=== PATIENT | male | born 1970 | race Two or more races ===

== ENCOUNTER 2019-01-03 19:34 | Inpatient (IN) | payer OTHER ==
[~2019-01-03] VITALS: Ht 165.1 cm; Wt 76.2 kg
[2019-01-03 19:56] VITALS: BP 151/83
--- NOTE | 2019-01-03 20:44 | NUR ---
PERSONAL SHOPPER NOTES RECEIVED PT FROM EMT. PT AMBULATORY. ON ROOM AIR NO RESPIRATORY DISTRESS NOTED. IV ACCESS ON LFA G20 PATENT AND INTACT. HEAD OF BED ELEVATED. SIDE RAILS UP. CALL LIGHT WITHIN REACH. BED ALARM ON. WILL CONTINUE TO MONITOR PT CLOSELY.
--- NOTE | 2019-01-03 21:48 | NUR ---
WAGON DRILL OPERATOR NOTES PT REFUSED BELONGING CHECK. CHARGE NURSE INFORMED.
--- NOTE | 2019-01-03 21:51 | NUR ---
OIL BAY TECHNICIAN NOTES PAGED BRANDING MACHINE TENDER FOR ORDERS. AWAITING ORDERS. WILL MONITOR PT CLOSELY.
[2019-01-03] MEDS ORDERED: DEXTROSE 50%-WATER 50 ML DISP.SYRIN IV PRN (23:30)
[2019-01-03] MEDS ORDERED: MAGNESIUM HYDROXIDE 30 ML UDC PO PRN (23:30)
[2019-01-03] MEDS ORDERED: ONDANSETRON HCL/PF 4 MG/2 ML VIAL IVP PRN (23:30)
[2019-01-03] MEDS ORDERED: Z GUARD REMEDY 2 OZ OINT TP PRN (23:30)
[2019-01-03] MEDS ORDERED: MAG HYDROX/AL HYDROX/SIMETH 30 ML UDC PO PRN (23:30)
[2019-01-03] MEDS ORDERED: ZOLPIDEM TARTRATE 5 MG TABLET PO PRN (23:30)
[2019-01-03] MEDS ORDERED: LORAZEPAM 1 MG TABLET PO PRN (23:30)
[2019-01-03] MEDS ORDERED: HYDROCODONE/APAP 5/325MG 1 EACH TABLET PO PRN (23:30)
[2019-01-03] MEDS ORDERED: ACETAMINOPHEN 325 MG TABLET PO PRN (23:30)
[2019-01-04] VITALS (10 sets, daily range): BP systolic 95–134; BP diastolic 45–84
[2019-01-04] MEDS: IV NS 0.9% 1,000 ML IV PRN (00:15)
[2019-01-04] MEDS ORDERED: PENICILLIN ONE (00:15)
[2019-01-04] MEDS ORDERED: NS IV ONE (00:30)
[2019-01-04] MEDS ORDERED: PENICILLIN IV ONE (00:30)
[2019-01-04] MEDS: NS IV SCH ×5 (01:00→09:48)
[2019-01-04] MEDS: PENICILLIN IV SCH ×5 (01:00→09:48)
[2019-01-04] MEDS ORDERED: VANCOMYCIN 1 GM VIAL ONE (03:29)
[2019-01-04] MEDS ORDERED: VANCOMYCIN 1.25 GM in IV D5W 250 ML IV ONE (03:30)
[2019-01-04] MEDS ORDERED: VANCOMYCIN 1 GM in IV D5W 250 ML IV ONE (04:00)
--- NOTE | 2019-01-04 04:41 | NUR ---
LABELLING MACHINE OPERATOR NOTES PT REFUSED BED BATH NAD LINEN CHANGE
[2019-01-04] MEDS ORDERED: CLINDAMYCIN 900 MG in IV NS 0.9% 50 ML IV SCH (05:00)
[2019-01-04] MEDS ORDERED: CLINDAMYCIN 900 MG/6 ML VIAL ONE (05:13)
[2019-01-04 06:26] LABS: BASOPHILS % (AUTO) 0.5 % (0.0-2.0); EOSINOPHILS % (AUTO) 6.3 % (0.0-6.0); HEMATOCRIT 22 % (39-51); LYMPHOCYTES % (AUTO) 11.6 % (20.0-44.0); MEAN CORPUSCULAR HGB CONC 32 g/dl (31.0-36.0); MEAN CORPUSCULAR VOLUME 69 fL (80-96); MONOCYTES # (AUTO) 0.6 /CMM (0.1-1.30); MONOCYTES % (AUTO) 6.2 % (2.0-12.0); NEUTROPHILS # (AUTO) 6.7 /CMM (1.8-8.9); NEUTROPHILS % (AUTO) 75.4 % (43.0-81.0); PLATELET COUNT (AUTO) 293 /CMM (150-450); RED BLOOD CELL COUNT(AUTO) 3.15 MIL/uL (4.5-6.0); WHITE BLOOD COUNT (AUTO) 8.9 K/uL (4.3-11.0)
[2019-01-04 06:40] LABS: HEMOGLOBIN 6.9 g/dL (13.5-17.5)
--- NOTE | 2019-01-04 06:46 | NUR ---
METAL WELDER NOTES PAGED IMPLEMENTATION PROJECT MANAGER REGARDING H/H OF 6.08/11. AWAITING ORDERS.
[2019-01-04 06:52] LABS: EOSINOPHILS % (MANUAL) 8 % (0-4); LYMPHOCYTES % (MANUAL) 11 % (16-48); MONOCYTES % (MANUAL) 6 % (0-11.0); NEUTROPHILS % (MANUAL) 75 (42-76)
[2019-01-04 06:56] LABS: ALBUMIN 1.5 g/dL (3.4-5.0); CALCIUM, SERUM 7.5 mg/dL (8.5-10.1); MAGNESIUM 1.6 mg/dL (1.8-2.4); PHOSPHORUS 3.4 mg/dL (2.5-4.9); POTASSIUM 3.6 mmol/L (3.5-5.1)
--- NOTE | 2019-01-04 06:59 | NUR ---
ADVERTISER NOTES NO ACUTE CHANGES NOTED DURING THE SHIFT, PROVIDED COMFORT AND SAFETY. PROVIDED FREQUENT SUCTIONING. WILL ENDORSE TO THE AM NURSE FOR CONTINUITY OF CARE. Addendum: 01/04/19 at 0700 by ISAAC WILD RN WRONG PATIENT
--- NOTE | 2019-01-04 07:00 | NUR ---
STENOCAPTIONER NOTES NO ACUTE CHANGES NOTED DURING THE SHIFT, PROVIDED COMFORT AND SAFETY. WILL ENDORSE TO THE AM NURSE FOR CONTINUITY OF CARE.
[2019-01-04 07:07] LABS: THYROID STIMULATING HORMONE 4.781 uIU/mL (0.358-3.74)
--- NOTE | 2019-01-04 07:20 | NUR ---
Nurse Notes: received report from Rich Goodwin RN, patient is resting in bed. Remains NPO, waiting for doctors to decise if patient will have surgery.
--- NOTE | 2019-01-04 07:56 | NUR ---
Nurse Notes: per pharmacy PCN antibiotics to be started at 0900, dose not charted on shift mgr.
[2019-01-04] MEDS: BLOOD SUGAR DIAGNOSTIC 1 EACH STRIP IN SCH ×4 (08:20→21:40)
[2019-01-04] MEDS ORDERED: AMLO5TAB9 PO (08:35)
[2019-01-04] MEDS ORDERED: METF500T7 PO (08:35)
[2019-01-04] MEDS: LEVETIRACETAM (250 MG) 250 MG TABLET PO SCH ×2 (09:00→21:33)
[2019-01-04] MEDS: THIAMINE HCL 100 MG TABLET PO SCH (09:46)
[2019-01-04] MEDS: FOLIC ACID 1 MG TABLET PO SCH (09:46)
[2019-01-04] MEDS: AMLODIPINE BESYLATE 10 MG TABLET PO SCH (09:46)
[2019-01-04] MEDS: Magnesium 1GM/D5W 100ML PREMIX 100 ML IV SCH ×4 (10:56→19:55)
--- NOTE | 2019-01-04 11:47 | NUR ---
Nurse Notes: Patient to surgery via bed, packed cells started 20 minutes ago, Patient was observed for blood transfusion reaction, No reaction, Remain afebrile, no symptoms of any transfusion reaction. Received dose PCN units IVPB.
--- NOTE | 2019-01-04 11:50 | NUR ---
Nurse Notes: patient went to surgery with unit of packed cells infusing at 120 cc per hour, pre-op will complete the blood transfusion. vital signs taken 15 minutes after start of blood.
--- NOTE | 2019-01-04 11:52 | NUR ---
Nurse Notes: Vancomycin IVPB was given at 0400, not charted on JAN. received PCN earlier at 0900.
[2019-01-04] MEDS ORDERED: BUPIVACAINE 0.5 % PF 150 MG/30 ML VIAL ONE (12:07)
[2019-01-04] MEDS ORDERED: CELLULOSE,OXIDIZED 1 EA PACK MC ONE (12:46)
[2019-01-04] MEDS ORDERED: CLINDAMYCIN 900 MG in IV D5W 50 ML IV SCH (13:00)
--- NOTE | 2019-01-04 13:45 | NUR ---
Nurse Notes: Received patient from recovery room, alert and oriented, and asking for food. Vital signs stable. No complaints of pain, dressing intact left foot. patient is able to move foot. No complaints of any numbness.
[2019-01-04] MEDS: VANCOMYCIN 1 GM in IV D5W 250 ML IV SCH ×2 (14:21→21:33)
[2019-01-04 14:53] LABS: BASOPHILS % (AUTO) 0.4 % (0.0-2.0); EOSINOPHILS % (AUTO) 4.4 % (0.0-6.0); HEMATOCRIT 26 % (39-51); HEMOGLOBIN 8.3 g/dL (13.5-17.5); LYMPHOCYTES # (AUTO) 0.9 /CMM (0.8-4.8); LYMPHOCYTES % (AUTO) 9.8 % (20.0-44.0); MEAN CORPUSCULAR HGB CONC 32 g/dl (31.0-36.0); MEAN CORPUSCULAR VOLUME 71 fL (80-96); MONOCYTES # (AUTO) 0.5 /CMM (0.1-1.30); MONOCYTES % (AUTO) 5.4 % (2.0-12.0); NEUTROPHILS # (AUTO) 7.7 /CMM (1.8-8.9); PLATELET COUNT (AUTO) 273 /CMM (150-450); RED BLOOD CELL COUNT(AUTO) 3.64 MIL/uL (4.5-6.0); WHITE BLOOD COUNT (AUTO) 9.6 K/uL (4.3-11.0)
--- NOTE | 2019-01-04 15:18 | NUR ---
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 A consult was requested per Dr. Breaux for homelessness. SW met with the pt in his Rm 109T-1. Pt is alert and oriented x4 (time, place, self and situation). Pt appeared to be disheveled and ungroomed. Pt states that he was renting out a room located at [address] [place] [address] but he no longer does. He stated that he is now currently living with different friends at a time. Pt stated that he is currently living with his friend, Lakhwinder, who lives in [place]. SW was unable to get a phone number for Lakhwinder because the pt's phone is currently out of charge. 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 Pt stated that he he has family nearby such as his mother (Isidra) who lives in [place], his sister who lives in [place], and his brother (Reed: [phone]) who lives in [place]. Pt does not have a history of drug abuse or alcohol abuse but he did state that he smokes tobacco. HOLLIE provided the pt with a few homeless resources including shelters and food [place] as well as substance abuse referrals. Pt also signed the homeless waiver. Addendum: 01/04/19 at 1544 by TESSIE BROWNE HOLLIE included substance abuse referrals for the pt due to the pt stating that he quit drinking/abusing alcohol one year ago when he discovered his Diabetes diagnosis.
[2019-01-04 15:22] LABS: EOSINOPHILS % (MANUAL) 4 % (0-4); LYMPHOCYTES % (MANUAL) 11 % (16-48); MONOCYTES % (MANUAL) 4 % (0-11.0); NEUTROPHILS % (MANUAL) 81 (42-76)
[2019-01-04] MEDS ORDERED: PERMETHRIN 5% CRM 60 GM TUBE TP ONE (18:00)
--- NOTE | 2019-01-04 18:10 | NUR ---
Nurse Notes: patient was not able to get magnesium 2 gm was ordered, this morning, patient want to surgery, and blood was transfusing this morning. all antibiotics IVPB started as soon, patient return to room
[2019-01-04] MEDS: LORATADINE 10 MG TABLET PO SCH (18:13)
[2019-01-04] MEDS: PIPERACILLIN /TAZOBACTAM 3.375 G in IV D5W 50 ML IV SCH (19:20)
--- NOTE | 2019-01-04 19:20 | NUR ---
Nurse Notes: patient will receive IV antibiotics now between magnesium bolus. medication was not on floor. all other abntibiotics started once patient return from surgery.
--- NOTE | 2019-01-04 20:30 | NUR ---
PRODUCTION ADMINISTRATOR NOTES PER MORNING NURSE NON ADMIN ONE BAG OF MAGNESIUM PER PHARMACY ORDERS.
--- NOTE | 2019-01-04 22:24 | NUR ---
LAP GRINDER NOTES RECEIVED PT ON BED. A/OX4. ON TELE MONITOR SR. ON RA SATURATING WELL NO RESPIRATORY DISTRESS NOTED. IV ACCESS LFA G20 NS @ 75CC/HR PATENT AND INTACT. LEFT FOOT WOUND DRESSING CLEAN. HEAD OF BED ELEVATED. SIDE RAILS UP. CALL LIGHT WITHIN REACH. BED ALARM ON. WILL CONTINUE TO MONITOR PT CLOSELY.
[2019-01-05] VITALS: BP 124/75
[2019-01-05] MEDS: PIPERACILLIN /TAZOBACTAM 3.375 G in IV D5W 50 ML IV SCH ×5 (00:20→23:47)
[2019-01-05] MEDS: IV NS 0.9% 1,000 ML IV PRN ×2 (01:00→20:56)
[2019-01-05 04:00] VITALS: BP 131/80
[2019-01-05] MEDS: VANCOMYCIN 1 GM in IV D5W 250 ML IV SCH ×3 (04:24→20:18)
--- NOTE | 2019-01-05 04:25 | NUR ---
RN NOTE: REQUESTED FOR THE ACCESS CLINICIAN TO COME AND DRAW THE VANCO TROUGH AND AWAITING FOR THE RN RADIATION TO DRAW BLOOD. Addendum: 01/06/19 at 0813 by BATOOL RETANA RN ERROR: ENTRY FOR 01/06/19
[2019-01-05 07:12] LABS: BASOPHILS # (AUTO) 0.1 /CMM (0.0-0.2); BASOPHILS % (AUTO) 0.7 % (0.0-2.0); EOSINOPHILS % (AUTO) 5.5 % (0.0-6.0); HEMATOCRIT 22 % (39-51); HEMOGLOBIN 7.3 g/dL (13.5-17.5); LYMPHOCYTES # (AUTO) 1.1 /CMM (0.8-4.8); LYMPHOCYTES % (AUTO) 11.8 % (20.0-44.0); MEAN CORPUSCULAR HGB CONC 33 g/dl (31.0-36.0); MEAN CORPUSCULAR VOLUME 70 fL (80-96); MONOCYTES # (AUTO) 0.6 /CMM (0.1-1.30); MONOCYTES % (AUTO) 6.4 % (2.0-12.0); NEUTROPHILS # (AUTO) 7.3 /CMM (1.8-8.9); NEUTROPHILS % (AUTO) 75.6 % (43.0-81.0); PLATELET COUNT (AUTO) 269 /CMM (150-450); RED BLOOD CELL COUNT(AUTO) 3.17 MIL/uL (4.5-6.0); WHITE BLOOD COUNT (AUTO) 9.7 K/uL (4.3-11.0)
--- NOTE | 2019-01-05 07:15 | NUR ---
SUPERVISOR/PORT DIRECTOR OPENING NOTES RECEIVED PT ON BED. A/OX4. ON TELE MONITOR SR HR 68. ON RA SATURATING WELL NO RESPIRATORY DISTRESS NOTED. IV ACCESS LFA G20 NS @ 75CC/HR PATENT AND INTACT. LEFT FOOT WOUND DRESSING INTACT. HEAD OF BED ELEVATED. SIDE RAILS UP. CALL LIGHT WITHIN REACH. BED ALARM ON. WILL CONTINUE TO MONITOR .
--- NOTE | 2019-01-05 07:26 | NUR ---
FINISHED CLOTH CHECKER NOTES NO ACUTE CHANGES NOTED DURING THE SHIFT. PROVIDED COMFORT AND SAFETY. WILL ENDORSE TO THE AM NURSE FOR CONTINUITY OF CARE.
[2019-01-05] MEDS: BLOOD SUGAR DIAGNOSTIC 1 EACH STRIP IN SCH ×4 (07:56→21:50)
[2019-01-05 08:00] VITALS: BP 110/67
--- NOTE | 2019-01-05 08:00 | NUR ---
CONCRETE PAVEMENT INSTALLER NOTE SEEN BY DR PUTNAM,WOUND DRESSING DONE.GOT NEW ORDERS.WILL CONTINUE TO MONITOR.
[2019-01-05 08:06] LABS: CALCIUM, SERUM 7.2 mg/dL (8.5-10.1); CREATININE 1.1 mg/dL (0.6-1.3); MAGNESIUM 1.9 mg/dL (1.8-2.4); PHOSPHORUS 3.7 mg/dL (2.5-4.9); POTASSIUM 3.8 mmol/L (3.5-5.1)
[2019-01-05] MEDS: THIAMINE HCL 100 MG TABLET PO SCH (09:31)
[2019-01-05] MEDS: LEVETIRACETAM (250 MG) 250 MG TABLET PO SCH ×2 (09:31→20:20)
[2019-01-05] MEDS: LORATADINE 10 MG TABLET PO SCH (09:32)
[2019-01-05] MEDS: AMLODIPINE BESYLATE 10 MG TABLET PO SCH (09:32)
[2019-01-05] MEDS: FOLIC ACID 1 MG TABLET PO SCH (09:36)
[2019-01-05 10:14] LABS: BAND % (MANUAL) 2 % (0.0-5.0); EOSINOPHILS % (MANUAL) 6 % (0-4); LYMPHOCYTES % (MANUAL) 10 % (16-48); MONOCYTES % (MANUAL) 7 % (0-11.0); NEUTROPHILS % (MANUAL) 75 (42-76)
[2019-01-05 12:00] VITALS: BP 102/56
[2019-01-05] MEDS ORDERED: FEE PK DOSING 1 MIN EA MC ONE (12:38)
--- NOTE | 2019-01-05 13:00 | NUR ---
BAKERY AND DELI SALES MANAGER NOTE PATIENT REFUSED INSULIN.OFFERED X3 AND EDUCATED PATIENT STILL REFUSING.WILL CONTINUE TO MONITOR.
--- NOTE | 2019-01-05 15:00 | NUR ---
ZIPPER CUTTER NOTE PATIENT REFUSED TO TAKE SHOWER AFTER THE ELIMITE APPLICATION LAST NIGHT.PATIENT STATED THAT HE IS COLD AND TIRED .DONT WANT TO TAKE SHOWER.OFFERED BED BATH STILL REFUSING.EDUCATED ABOUT THE IMPORTANCE FOR THE BED BATH.PATIENT AGREED TO DO BED BATH AFTER DINNER WITH PM SHIFT.CHARGE NURSE AWARE.WILL ENDORSE TO PM NURSE.
[2019-01-05 16:00] VITALS: BP 112/46
--- NOTE | 2019-01-05 16:00 | NUR ---
SENIOR ENERGY CONSULTANT NOTE SEEN BY DEVICE REPAIR TECHNICIAN RIGOBERTO UPDATED PATIENT CONDITION WITH LABS,NOTIFIED H/H TRENDING DOWN.GOT NEW ORDER.
[2019-01-05] MEDS: INSULIN REGULAR, HUMAN 100 UNIT/ML 3 ML VIAL SQ PRN (17:45)
--- NOTE | 2019-01-05 18:53 | NUR ---
BIOMETRICS ANALYST CLOSING NOTES PT ON BED. A/OX4. ON TELE MONITOR SR HR 64. ON RA SATURATING WELL NO RESPIRATORY DISTRESS NOTED. IV ACCESS LW G20 NS @ 75CC/HR PATENT AND INTACT. LEFT FOOT WOUND DRESSING INTACT. HEAD OF BED ELEVATED. SIDE RAILS UP. CALL LIGHT WITHIN REACH. BED ALARM ON. WILL ENDORSE TO PM NURSE FOR BASIL.
--- NOTE | 2019-01-05 19:45 | NUR ---
RN OPENING NOTE: RECEIVED PATIENT IN BED, AWAKE, ALERT AND VERBALLY RESPONSIVE. BREATHING EVEN AND UNLABORED. DENIED ANY PAIN. ON CONTACT ISOLATION DUE TO R/O POSSIBLE SCABIES. PATIENT RECEIVED ELIMITE YESTERDAY AND DUE FOR A SHOWER TONIGHT. BED ALARMED AND LOCKED AT ALL TIMES. (L) WRIST IV LINE NOTED PATENT AND INTACT INFUSING NS @75ML/HR. HOB ELEVATED. CALL LIGHT WITHIN REACH. NEEDS ANTICIPATED. DISCUSSED WITH THE PATIENT REGARDING THE PLAN OF GIVING HIM A SHOWER TO RINSE THE ELIMITE CREAM THAT WAS GIVEN TO THE PATIENT. PER PATIENT " I DON'T THINK I WILL SHOWER TONIGHT. I'M AFRAID TO GET SICK." EXPLAINED TO THE PATIENT THE IMPORTANCE OF GETTING RINSE ON THE ELIMITE CREAM, BUT HE STRONGLY REFUSED TO TAKE SHOWER.
[2019-01-05 20:00] VITALS: BP 116/68
[2019-01-06] VITALS: BP 112/61
--- NOTE | 2019-01-06 00:16 | NUR ---
RN NOTE: CALLED AFTER HOUR PHARMACIST OG COON AND MADE HIM AWARE ABOUT THE CRITICAL LAB RESULT FOR VANCOMYCIN TROUGH DRAWN AT 2300 AND THE LEVEL WAS 54. HE WAS INFORMED ABOUT THE NOTES OF ROSALIND AYALA. PER OG HE WILL TAKE A LOOK ON THE PATIENT'S CHART AND WILL CALL BACK.
--- NOTE | 2019-01-06 00:22 | NUR ---
RN NOTE: RECEIVED A CALL BACK FROM ROSALIND FOLEY AND ACCORDING TO HIM HE WILL SCHEDULE ANOTHER VANCOMYCIN TROUGH AT 0300 PRIOR TO THE VANCOMYCIN DOSE AT 0400. IVAN YAN WAS MADE AWARE. PATIENT WAS INFORMED.
[2019-01-06 04:00] VITALS: BP 116/59
--- NOTE | 2019-01-06 04:15 | NUR ---
RN NOTE: CALLED AND SPOKE WITH DIGITAL CONTENT MANAGER KAREN AND ASKED HER ABOUT THE VANCOMYCIN TROUGH AT 0300. ACCORDING TO KAREN, THE 2 PHLEBOTOMISTS WERE STILL IN ICU. AND PER KAREN, THE VANCOMYCIN TROUGH WILL BE DRAWN TOGETHER WITH THE AM LABS. CALLED AND INFORMED OG THE AFTER HOUR PHARMACIST ABOUT THE DELAY ON THE VANCO TROUGH AND HE SAID TO HOLD THE DOSE OF THE VANCOMYCIN AT 0400 UNTIL THE RESULT FOR THE VANCO TROUGH. YURIY VICK NP MADE AWARE.
--- NOTE | 2019-01-06 04:25 | NUR ---
RN NOTE: REQUESTED FOR THE LINEN CONTROLLER TO COME AND DRAW THE VANCO TROUGH AND AWAITING FOR THE BLOCKMASON TO DRAW BLOOD.
[2019-01-06 04:52] LABS: BASOPHILS # (AUTO) 0.1 /CMM (0.0-0.2); BASOPHILS % (AUTO) 0.6 % (0.0-2.0); HEMATOCRIT 22 % (39-51); HEMOGLOBIN 7.1 g/dL (13.5-17.5); LYMPHOCYTES % (AUTO) 11.1 % (20.0-44.0); MEAN CORPUSCULAR HGB CONC 33 g/dl (31.0-36.0); MEAN CORPUSCULAR VOLUME 71 fL (80-96); MONOCYTES # (AUTO) 0.5 /CMM (0.1-1.30); MONOCYTES % (AUTO) 5.3 % (2.0-12.0); NEUTROPHILS # (AUTO) 7.3 /CMM (1.8-8.9); PLATELET COUNT (AUTO) 274 /CMM (150-450); RED BLOOD CELL COUNT(AUTO) 3.07 MIL/uL (4.5-6.0); WHITE BLOOD COUNT (AUTO) 9.3 K/uL (4.3-11.0)
[2019-01-06 05:16] LABS: CALCIUM, SERUM 7.3 mg/dL (8.5-10.1); CREATININE 1.2 mg/dL (0.6-1.3); POTASSIUM 3.6 mmol/L (3.5-5.1)
[2019-01-06 05:23] LABS: LYMPHOCYTES % (MANUAL) 11 % (16-48); NEUTROPHILS % (MANUAL) 80 (42-76)
[2019-01-06 05:24] LABS: EOSINOPHILS % (MANUAL) 4 % (0-4); MONOCYTES % (MANUAL) 5 % (0-11.0)
[2019-01-06] MEDS: VANCOMYCIN 1 GM in IV D5W 250 ML IV SCH (05:29)
--- NOTE | 2019-01-06 05:29 | NUR ---
RN NOTE: CALLED AND SPOKE WITH OG FROM THE AFTER HOUR PHARMACY AND HE WAS INFORMED OF THE VANCOMYCIN TROUGH OF 37. PER OG, HOLD THE DOSE OF VANCOMYCIN FOR 0400 AND WILL HAVE THE PHARMACIST IN THE MORNING DECIDE ABOUT THE NEXT DOSE. YURIY VICK NP MADE AWARE.
[2019-01-06] MEDS: PIPERACILLIN /TAZOBACTAM 3.375 G in IV D5W 50 ML IV SCH ×4 (05:43→23:40)
--- NOTE | 2019-01-06 07:30 | NUR ---
RN CLOSING NOTE: PATIENT REMAINED ASLEEP AT THIS TIME. NO CHANGE OF CONDITION NOTED. REPORT GIVEN TO AM SHIFT NURSE FOR CONTINUITY OF CARE.
[2019-01-06 08:00] VITALS: BP 115/67
--- NOTE | 2019-01-06 08:00 | NUR ---
CLAIM EXAMINER NOTE RECEIVED PATIENT IN BED ALERT, ORIENTED, ALL NEEDS ATTENDED ON IVF ORDERED. LT HAND HL INTACT ON TELE MONITOR SR , ON RA NO SOB NOTED AT THIS TIME, BED IN LOWEST AND LOCKED POSITION , PLAN OF CAR DISCUSSED WITH PATIENT , WILL CONT TO MONITOR CLOSELY
[2019-01-06] MEDS: THIAMINE HCL 100 MG TABLET PO SCH (09:23)
[2019-01-06] MEDS: LORATADINE 10 MG TABLET PO SCH (09:23)
[2019-01-06] MEDS: LEVETIRACETAM (250 MG) 250 MG TABLET PO SCH ×2 (09:23→21:43)
[2019-01-06] MEDS: AMLODIPINE BESYLATE 10 MG TABLET PO SCH (09:24)
[2019-01-06] MEDS: BLOOD SUGAR DIAGNOSTIC 1 EACH STRIP IN SCH ×4 (09:24→21:46)
[2019-01-06] MEDS: FOLIC ACID 1 MG TABLET PO SCH (09:24)
--- NOTE | 2019-01-06 09:36 | NUR ---
INVOICE CODER NOTE SPOKE WITH PHARMACIST LCUY ABOUT VANCO LEVEL IS HIGH ,STATED THAT WILL CHECK IT SOON WILL F\U
[2019-01-06] MEDS: INSULIN REGULAR, HUMAN 100 UNIT/ML 3 ML VIAL SQ PRN (11:58)
[2019-01-06 12:00] VITALS: BP 132/88
--- NOTE | 2019-01-06 12:30 | NUR ---
LIFE SKILLS EDUCATOR NOTE SPOKE WITH DR NOBLES NOTIFIED THAT HG 7.1 ALSO PATIENT WANTS TO EAT BIGGER PORTION OF FOOD , WANTS TO HAV REGULAR DIET , DR NOBLES STATED OK TO ORDER REGULAR DIET , DIETITIAN AT BEDSIDE ,DISCUSSED WITH PATIENT ABOUT DIET
[2019-01-06] MEDS: IV NS 0.9% 1,000 ML IV PRN ×2 (14:17→21:42)
--- NOTE | 2019-01-06 15:00 | NUR ---
FILLING MACHINE OPERATOR NOTE ABLE TO GO BR SELF, NOT IN ACUTE DISTRESS ,ALL NEEDS ATTENDED, WILL CONT TO MONITOR CLOSELY
[2019-01-06 16:00] VITALS: BP 125/72
--- NOTE | 2019-01-06 16:14 | NUR ---
TELERN NOTE REFUSED TO DO SHOWER AND LUCÍA FAIRCHILD, OFFERED X3 ,STILL REFUSING. WILL F\U
[2019-01-06] MEDS: LACTOBACILLUS RHAMNOSUS GG 1 EACH CAP.SPRINK PO SCH (16:18)
--- NOTE | 2019-01-06 19:11 | NUR ---
EPIC KALEIDOSCOPE ANALYST NOTE STOOL MISBAH OB COLLECTED ORDERED, ALL NEEDS ATTENDED. NOT IN ACUTE DISTRESS
[2019-01-06 20:00] VITALS: BP 120/69
--- NOTE | 2019-01-06 20:00 | NUR ---
RN INITIAL NOTE RECEIVED PATIENT IN BED ALERT, ORIENTED, ALL NEEDS ATTENDED ON IVF ORDERED. LT HAND HL INTACT ON TELE MONITOR SR , ON RA NO SOB NOTED AT THIS TIME, BED IN LOWEST AND LOCKED POSITION , PLAN OF CARE DISCUSSED WITH PATIENT , WILL CONT TO MONITOR CLOSELY
--- NOTE | 2019-01-06 22:04 | NUR ---
RN NOTES PT REFUSED TO HAVE PICS TAKEN OF HIS WOUNDS. PT STATED PIC BEFORE, AND HIS DRESSING WAS DONE TODAY BY MD AND DID NOT WANT IT TO BE REDONE. CHARGE NURSE NOTIFIED.
[2019-01-06 22:35] LABS: OCCULT BLOOD STOOL POSITIVE (NEGATIVE)
[2019-01-07] VITALS: BP 131/62
[2019-01-07 04:00] VITALS: BP_SYST 109; BP_SYST 136; BP_DIAS 54; BP_DIAS 79
[2019-01-07] MEDS: PIPERACILLIN /TAZOBACTAM 3.375 G in IV D5W 50 ML IV SCH ×4 (05:13→23:55)
--- NOTE | 2019-01-07 06:13 | NUR ---
RN CLOSING NOTE: PATIENT REMAINED AWAKE IN BED AT THIS TIME. NO CHANGE OF CONDITION NOTED. PT REFUSED BATH, BED LINEN CHANGE, PICS AND DRESSING CHANGE. WILL ENDORSE TO AM SHIFT NURSE FOR CONTINUITY OF CARE.
[2019-01-07 07:05] LABS: CALCIUM, SERUM 7.7 mg/dL (8.5-10.1); CREATININE 1.2 mg/dL (0.6-1.3); POTASSIUM 3.6 mmol/L (3.5-5.1)
[2019-01-07 07:10] LABS: BASOPHILS % (AUTO) 0.6 % (0.0-2.0); EOSINOPHILS % (AUTO) 6.9 % (0.0-6.0); HEMATOCRIT 23 % (39-51); HEMOGLOBIN 7.5 g/dL (13.5-17.5); LYMPHOCYTES # (AUTO) 1.2 /CMM (0.8-4.8); LYMPHOCYTES % (AUTO) 14.9 % (20.0-44.0); MEAN CORPUSCULAR HGB CONC 32 g/dl (31.0-36.0); MEAN CORPUSCULAR VOLUME 71 fL (80-96); MONOCYTES # (AUTO) 0.6 /CMM (0.1-1.30); MONOCYTES % (AUTO) 7.8 % (2.0-12.0); NEUTROPHILS # (AUTO) 5.4 /CMM (1.8-8.9); NEUTROPHILS % (AUTO) 69.8 % (43.0-81.0); PLATELET COUNT (AUTO) 263 /CMM (150-450); RED BLOOD CELL COUNT(AUTO) 3.26 MIL/uL (4.5-6.0); WHITE BLOOD COUNT (AUTO) 7.7 K/uL (4.3-11.0)
--- NOTE | 2019-01-07 07:20 | NUR ---
RN OPENING NOTES PT AWAKE AND RESTING IN BED. NO COMPLAINTS OF PAIN, DISTRESS OR SOB AT THIS TIME. PT HAS LEFT WRIST IV INTACT AND RUNNING NS @75ML/HR, PT TOLERATING WELL. SAFETY PRECAUTIONS IN PLACE, BED IN LOWEST LOCKED POSITION, X2 SIDE RAILS UP AND CALL LIGHT WITHIN REACH. WILL CONTINUE TO MONITOR.
[2019-01-07 08:00] VITALS: BP 122/67
[2019-01-07] MEDS: BLOOD SUGAR DIAGNOSTIC 1 EACH STRIP IN SCH ×4 (08:27→21:19)
[2019-01-07] MEDS: VANCOMYCIN 1 GM in IV D5W 250 ML IV SCH ×2 (09:24→21:04)
[2019-01-07] MEDS: LACTOBACILLUS RHAMNOSUS GG 1 EACH CAP.SPRINK PO SCH ×2 (09:25→17:19)
[2019-01-07] MEDS: LEVETIRACETAM (250 MG) 250 MG TABLET PO SCH ×2 (09:25→21:04)
[2019-01-07] MEDS: THIAMINE HCL 100 MG TABLET PO SCH (09:25)
[2019-01-07] MEDS: LORATADINE 10 MG TABLET PO SCH (09:25)
[2019-01-07] MEDS: FOLIC ACID 1 MG TABLET PO SCH (09:25)
[2019-01-07] MEDS: AMLODIPINE BESYLATE 10 MG TABLET PO SCH (09:25)
[2019-01-07] MEDS ORDERED: INSU100V28 SQ (11:31)
[2019-01-07] MEDS ORDERED: ACET325T53 PO (11:31)
[2019-01-07] MEDS ORDERED: LEVE250T2 PO (11:31)
[2019-01-07] MEDS ORDERED: Thiamine HCL PO (11:31)
[2019-01-07] MEDS ORDERED: AMLO10TA7 PO (11:31)
[2019-01-07 12:00] VITALS: BP 137/72
[2019-01-07] MEDS: INSULIN REGULAR, HUMAN 100 UNIT/ML 3 ML VIAL SQ PRN (12:10)
[2019-01-07 16:00] VITALS: BP 138/80
--- NOTE | 2019-01-07 18:35 | NUR ---
RN CLOSING NOTES PT AWAKE AND RESTING IN BED. NO COMPLAINTS OF PAIN, DISTRESS OR SOB AT THIS TIME. PT HAS LEFT WRIST IV INTACT AND RUNNING NS @75ML/HR, PT TOLERATING WELL. SAFETY PRECAUTIONS IN PLACE, BED IN LOWEST LOCKED POSITION, X2 SIDE RAILS UP AND CALL LIGHT WITHIN REACH. ALL PATIENT NEEDS MET DURING SHIFT. WILL ENDORSE TO CHERRY SORTER NURSE FOR CONTINUITY OF CARE.
--- NOTE | 2019-01-07 19:30 | NUR ---
RECEIVED PATIENT IN BED AWAKE, AO X 3, ABLE TO MAKE NEEDS KNOWN. NO ACUTE DISTRESS NOTED. DENIES ANY PAIN AT THIS TIME. IV SITE PATENT, INTACT; IVF INFUSING ORDERED. LEFT FOOT DRESSING INTACT. CONTACT ISOLATION TO R/O SCABIES MAINTAINED. SAFETY REMINDERS GIVEN. ON LOW BED WITH BILATERAL UPPER SIDE RAILS UP. CALL [place] WITHIN EASY REACH. WILL CONTINUE TO MONITOR.
[2019-01-07 20:00] VITALS: BP 129/72
[2019-01-07] MEDS: IV NS 0.9% 1,000 ML IV PRN (23:55)
[2019-01-08] VITALS: BP 124/64
[2019-01-08 04:00] VITALS: BP 138/78
[2019-01-08] MEDS: PIPERACILLIN /TAZOBACTAM 3.375 G in IV D5W 50 ML IV SCH ×2 (06:06→12:28)
--- NOTE | 2019-01-08 06:54 | NUR ---
PATIENT ASLEEP, EASILY AROUSABLE. RESPIRATIONS EVEN. NO SIGNS OF PAIN NOTED. NO SYMPTOMS OF HYPER/HYPOGLYCEMIA. DUE MEDS GIVEN WITH NO ASE NOTED. NEEDS ATTENDED. SAFETY PRECAUTIONS AND COMFORT MEASURES IN PLACE. WILL GIVE REPORT TO DAY SHIFT FOR CONTINUITY OF CARE.
[2019-01-08 07:20] LABS: CALCIUM, SERUM 7.9 mg/dL (8.5-10.1); CREATININE 1.3 mg/dL (0.6-1.3); POTASSIUM 3.9 mmol/L (3.5-5.1)
[2019-01-08 08:00] VITALS: BP_SYST 134; BP_DIAS 64; BP_DIAS 69
[2019-01-08] MEDS: BLOOD SUGAR DIAGNOSTIC 1 EACH STRIP IN SCH ×2 (08:43→12:24)
[2019-01-08] MEDS: INSULIN REGULAR, HUMAN 100 UNIT/ML 3 ML VIAL SQ PRN ×2 (08:48→12:26)
[2019-01-08] MEDS: AMLODIPINE BESYLATE 10 MG TABLET PO SCH (09:27)
[2019-01-08] MEDS: THIAMINE HCL 100 MG TABLET PO SCH (09:27)
[2019-01-08] MEDS: FOLIC ACID 1 MG TABLET PO SCH (09:27)
[2019-01-08] MEDS: LORATADINE 10 MG TABLET PO SCH (09:27)
[2019-01-08] MEDS: LACTOBACILLUS RHAMNOSUS GG 1 EACH CAP.SPRINK PO SCH (09:27)
[2019-01-08] MEDS: LEVETIRACETAM (250 MG) 250 MG TABLET PO SCH (09:28)
[2019-01-08] MEDS: VANCOMYCIN 1 GM in IV D5W 250 ML IV SCH (09:29)
[2019-01-08 12:00] VITALS: BP_SYST 125; BP_SYST 142; BP_DIAS 74; BP_DIAS 79
[2019-01-08 16:00] VITALS: BP 142/79
== END 2019-01-08 17:35 | DRG 305 ==
LOC: TELE1 19:34
PROVIDERS: ADMIT Hospitalist; ATTEND Nurse Practitioner Acute Care
PROC: 0Y6N0ZF Detachment at Left Foot, Partial 5th Ray, Open Approach (ICD-10-PCS; principal; 2019-01-04)
PROC: 30233N1 Transfusion of Nonautologous Red Blood Cells into Peripheral Vein, Percutaneous Approach (ICD-10-PCS; principal; 2019-01-04)
PROC: 0QBP0ZZ Excision of Left Metatarsal, Open Approach (ICD-10-PCS; principal; 2019-01-04)
DX: E11.52 Type 2 diabetes mellitus with diabetic peripheral angiopathy with gangrene (principal); A48.0 Gas gangrene; E11.621 Type 2 diabetes mellitus with foot ulcer; E11.42 Type 2 diabetes mellitus with diabetic polyneuropathy; D56.3 Thalassemia minor; B86 Scabies; E11.69 Type 2 diabetes mellitus with other specified complication; L03.115 Cellulitis of right lower limb; M86.8X7 Other osteomyelitis, ankle and foot; L03.116 Cellulitis of left lower limb; I10 Essential (primary) hypertension; F17.290 Nicotine dependence, other tobacco product, uncomplicated; Z22.322 Carrier or suspected carrier of Methicillin resistant Staphylococcus aureus; Z79.4 Long term (current) use of insulin; Z79.84 Long term (current) use of oral hypoglycemic drugs; L97.528 Non-pressure chronic ulcer of other part of left foot with other specified severity; G40.909 Epilepsy, unspecified, not intractable, without status epilepticus; F10.20 Alcohol dependence, uncomplicated
CPT/HCPCS: 36415; 73630-TC; 80048-TC; 80061-TC; 80202-TC; 82040-TC; 82272-TC; 82962-TC; 83540-TC; 83735-TC; 84100-TC; 84443-TC; 85025-TC; 85730-TC; 86850-TC; 86921-TC; 87070-TC; 87081-TC; 87186-TC; 88307-TC; 88311-TC; 88312-TC; A4216; A4217; A6253; A6402; G0378; J0690; J1815; J2405; J2540; J2543; J2704; J3370; J3475; J3490; J7030; J7050; J7060; P9016-BL